=== PATIENT | male | born 1975 | race Caucasian/White ===

== ENCOUNTER 2017-11-17 01:42 | Emergency (ER) | payer BC ==
[2017-11-17] MEDS ORDERED: Ketorolac 30 MG/ML SDV IVPUSH ONE (01:57)
[2017-11-17] MEDS ORDERED: Ondansetron 4 MG/2 ML SDV IV ONE (02:01)
[2017-11-17] MEDS ORDERED: Ondansetron 4 MG/2 ML SDV ONE (02:03)
--- NOTE | 2017-11-17 02:09 | EDM.PDOC ---
ED HPI GENERAL MEDICAL PROBLEM - General Chief Complaint: Chest Pain Stated Complaint: SIDE PAIN [id number] Time Seen by Provider: 11/17/17 01:50 Source of Information: Reports: Patient History Limitations: Reports: No Limitations - History of Present Illness INITIAL COMMENTS - FREE TEXT/NARRATIVE: ED ambulatory with c/o severe left rib pain. Reprts slipping and falling on curb ttday, tonight pain worse after rolling over in bed and felt something shift. Unable to get comfortable, Severe pain with movment. Tried, tylenol and ibuprofen and old left over oxycodone and nothing has helped. Treatments [employer]: Reports: Acetaminophen, NSAIDS Left Chest Pain Score (Numeric/FACES): 10 - Related Data Allergies Allergy/AdvReac Type Severity Reaction Status Date / Time codeine Allergy Cannot Verified 11/17/17 01:57 Remember Penicillins Allergy Cannot Verified 11/17/17 01:57 Remember Home Meds: Home Meds Omeprazole 10 mg PO DAILY 11/17/17 [History] S-Adenosylmethionine Sul Tosyl [Randall-E] 800 mg PO DAILY 11/17/17 [History] Past Medical History HEENT History: Reports: Impaired Vision - Past Surgical History GI Surgical History: Reports: Appendectomy Social & Family History - Tobacco Use Smoking Status *Q: Never Smoker - Caffeine Use Caffeine Use: Reports: Coffee, Soda - Alcohol Use Days Per Week of Alcohol Use: 5 Number of Drinks Per Day: 5 Total Drinks Per Week: 25 - Recreational Drug Use Recreational Drug Use: No ED ROS GENERAL - Review of Systems Review Of Systems: ROS reveals no pertinent complaints other than HPI. ED EXAM, GENERAL - Physical Exam Exam: See Below Exam Limited By: Language Barrier General Appearance: Alert, Moderate Distress, Severe Distress (with movment) Eye Exam: Bilateral Eye: EOMI Ears: Normal External Exam Nose: Normal Inspection Throat/Mouth: Normal Inspection Head: Atraumatic, Normocephalic Neck: Normal Inspection, Full Range of Motion Respiratory/Chest: Lungs Clear, Decreased Breath Sounds (bases), Splinting, Other (tender mid lateral posterior chest with palpation, No bruising noted.). No: Crackles, Rales, Wheezing Cardiovascular: Normal Peripheral Pulses, Regular Rate, Rhythm GI/Abdominal: Normal Bowel Sounds, Soft Neurological: Alert, Oriented Psychiatric: Normal Affect Skin Exam: Warm, Dry, Intact, Pallor. No: Ecchymosis, Wound/Incision Course - Vital Signs Last Recorded V/S: Last Vital Signs Temp 98.5 F 11/17/17 01:48 Pulse 59 L 11/17/17 01:48 Resp 18 11/17/17 01:48 BP 126/88 11/17/17 01:48 Pulse Ox 100 11/17/17 01:48 - Orders/Labs/Meds Orders: Active Orders 24 hr Category Date Time Status Incentive Spirometry [RT Incentive Spirometry] [RC] Care 11/17/17 02:02 Active ASDIRECTED Meds: Medications Discontinued Medications Generic Name Dose Route Start Last Admin Trade Name Xavierq PRN Reason Stop Dose Admin Fentanyl 50 mcg 11/17/17 02:35 11/17/17 02:41 Sublimaze IVPUSH 11/17/17 02:36 50 mcg ONETIME ONE Administration Ketorolac Tromethamine 30 mg 11/17/17 01:57 11/17/17 02:09 Toradol IVPUSH 11/17/17 01:58 30 mg ONETIME ONE Administration Ondansetron HCl 4 mg 11/17/17 02:01 11/17/17 02:06 Zofran IV 11/17/17 02:02 4 mg ONETIME ONE Administration Ondansetron HCl Confirm 11/17/17 02:03 11/17/17 02:23 Zofran Administered 11/17/17 02:04 Not Given Dose 4 mg .ROUTE .STK-MED ONE Orphenadrine Citrate 60 mg 11/17/17 01:57 11/17/17 02:04 Norflex IM 11/17/17 01:58 60 mg ONETIME ONE Administration - Radiology Interpretation Free Text/Narrative:: CXR with left rib detail: No fracture Departure - Departure Time of Disposition: 02:52 Disposition: Home, Self-Care 01 Condition: Fair Clinical Impression: Rib pain on left side - Discharge Information Instructions: Rib Contusion Forms: ED Department Discharge Additional Instructions: flexeril 10mg one every 8 hours as needed for muscle spasm #15 hydrocodone 10/325 one every 6 hours as needed for severe pain #12 Ibuprofen 600mg every 6 hours as needed for moderate pain warm pack to area follow up as needed incentive spirometer - My Orders Last 24 Hours: My Active Orders 11/17/17 02:02 Incentive Spirometry [RT Incentive Spirometry] [RC] ASDIRECTED - Assessment/Plan Last 24 Hours: My Active Orders 11/17/17 02:02 Incentive Spirometry [RT Incentive Spirometry] [RC] ASDIRECTED
[2017-11-17] MEDS ORDERED: fentaNYL 100 MCG/2 ML SDV IVPUSH ONE (02:35)
== END 2017-11-17 03:11 | disposition home or self-care (01) ==
LOC: DL.ED 01:42
DX: R07.81 Pleurodynia (principal); Z88.5 Allergy status to narcotic agent; Z88.0 Allergy status to penicillin; Z79.899 Other long term (current) drug therapy
CPT/HCPCS: 71101; 94010; 96372; 96374; 96375; 99283; J1885; J2360; J2405; J3010